=== PATIENT | male | born 1960 | race Caucasian/White ===

== ENCOUNTER 2022-09-20 12:56 | Emergency (ER) | payer OTHER ==
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
[2022-09-20 13:23] VITALS: BP 169/93
== END 2022-09-20 14:30 | disposition home or self-care (01) ==
LOC: ED 12:56
DX: S30.1XXA Contusion of abdominal wall, initial encounter (principal); S40.212A Abrasion of left shoulder, initial encounter; S40.812A Abrasion of left upper arm, initial encounter; S80.212A Abrasion, left knee, initial encounter; S70.212A Abrasion, left hip, initial encounter; V11.4XXA Pedal cycle driver injured in collision with other pedal cycle in traffic accident, initial encounter; Y93.55 Activity, bike riding
CPT/HCPCS: 99282; 99283